=== PATIENT | female | born 1935 | race Caucasian/White ===

== ENCOUNTER 2023-07-27 19:53 | Inpatient (IN) ==
--- NOTE | 2023-07-27 20:35 | XRay Report ---
SINGLE VIEW CHEST CLINICAL HISTORY: Flulike symptoms. FINDINGS: A PA chest radiograph is obtained. No prior studies are available for comparison at the [facility] e of dictation. The cardiomediastinal silhouette is top normal for projection and noting atherosclero tic calcification of the thoracic aorta. Nonspecific interstitial thickening is likely chronic. There is a 3.2 cm lobular density projecting over the right upper lobe. Mild patchy opacities are also see n projecting over the left midlung. No large pleural effusion or pneumothorax is seen. The skeletal s tructures are osteopenic. The bony thorax is grossly intact. Degenerative change and scoliosis is not ed in the spine. IMPRESSION: 1. There is a 3.2 cm lobular/nodular opacity projecting over the right upper lung as well as mild pat flores opacities in the left midlung. Although these findings could be on an infectious/ inflammatory ba sis, a chest CT is recommended for further assessment and to exclude underlying pulmonary neoplasm. 2. No large pleural effusion is identified. ACT 112: Negative or not required by law. Electronically signed by: Zach aLrios M.D. 07/27/2023 8:34 PM
[2023-07-27 20:57] LABS: Adenovirus PCR Not Detected (NotDetected); Bordetella parapertussis PCR Not Detected (NotDetected); Bordetella pertussis PCR Not Detected (NotDetected); Chlamydia pneumoniae PCR Not Detected (NotDetected); Coronavirus 229E PCR Not Detected (NotDetected); Coronavirus CoV-2 (COVID19)PCR Not Detected (NotDetected); Coronavirus HKU1 PCR Not Detected (NotDetected); Coronavirus NL63 PCR Not Detected (NotDetected); Coronavirus OC43PCR Not Detected (NotDetected); Human Metapneumovirus PCR Not Detected (NotDetected); Influenza A PCR Not Detected (NotDetected); Influenza B PCR Not Detected (NotDetected); Mycoplasma pneumoniae PCR Not Detected (NotDetected); Parainfluenza Virus 1 PCR Not Detected (NotDetected); Parainfluenza Virus 2 PCR Not Detected (NotDetected); Parainfluenza Virus 3 PCR Not Detected (NotDetected); Parainfluenza Virus 4 PCR Not Detected (NotDetected); Respiratory Syncytial VirusPCR Not Detected (NotDetected); Rhinovirus/Enterovirus PCR Not Detected (NotDetected)
[2023-07-27] MEDS ORDERED: cefTRIAXone SODIUM 2,000 MG/50 ML BAG IV STA (20:57)
--- NOTE | 2023-07-27 21:02 | Emergency Department Note ---
Impression & Plan Pneumonia, Hypokalemia, Elevated troponin I level ED Provider Note NAME: ANN HECTOR AGE: 87 SEX: F : 1935 ARRIVES VIA: Walk-In INFORMANT: Patient, patient's family ED PROVIDER(S): Jae Mckeon DO CHIEF COMPLAINT: Difficulty breathing HPI: The patient is an 87-year-old female who presented to the emergency department for an evaluation of cough and difficulty breathing. The patient states that since Saturday she has had problems with a productive cough. She has a history of pneumonia and thinks she may have pneumonia again. She does complain of some coughing as well as swelling on her legs. She denies having any hemoptysis. She has not been seen by her family doctor for the symptoms. ROS: See above HPI for pertinent positives & negatives. A total of 10 systems reviewed and were otherwise negative. PAST MEDICAL HISTORY: See Below PAST SURGICAL HISTORY: See Below FAMILY HISTORY: See Below SOCIAL HISTORY: See Below HOME MEDICATIONS: See Below ALLERGIES: See Below VITALS: See Below PHYSICAL EXAMINATION: GENERAL: Patient is awake alert in no acute distress patient is resting comfortably and showing no signs of anxiety EYES: The conjunctivae are clear. The pupils are round and reactive. EARS, NOSE, MOUTH AND THROAT: The nose is without any evidence of any deformity. NECK: The neck is nontender and supple. RESPIRATORY: Diminished breath sounds are noted in the right upper lung field. There is mild conversational dyspnea. CARDIOVASCULAR: Regular rate and rhythm noted there no murmurs rubs or gallops normal S1 normal S2. GASTROINTESTINAL: The abdomen is soft. Abdomen is nontender. MUSCULOSKELETAL/EXTREMITIES: There is no evidence of gross deformity full range of motion is noted in the hips and shoulders. SKIN: There is no obvious evidence of any rash. Trace pedal edema was noted bilaterally. NEUROLOGIC: Patient is awake alert and oriented x3 MEDICAL DECISION MAKING: The patient is an 87-year-old female who presented to the emergency department for an evaluation of productive cough. The patient has had problems with difficulty breathing and productive cough over the course the last week. The patient had abnormal lung sounds. Chest x-ray appears to be consistent with pneumonia. The patient's white blood cell count was elevated. She was also treated with IV fluids and IV antibiotics. She was also treated with potassium replacement. She did not appear to be septic. With exertion she did have a drop in her oxygen saturation but at rest her oxygen saturation was acceptable. Given the patient's age and comorbidities as well as her findings on her emergency department work-up I do feel she would be a better candidate for inpatient management. For this reason I will discuss her case with the on-call [facility] hospitalist. Triage Nursing notes reviewed. Prior medical records reviewed Vital Signs: reviewed and remarkable for no significant abnormalities Differential diagnosis: Reactive airway disease, pneumonia, pneumothorax, COPD, CHF, infections, cardiac ischemia, pulmonary embolism, musculoskeletal, gastrointestinal, as well as other pathologies. ER treatment provided: See below Diagnostics interpreted by me: ECG: EKG was obtained in the emergency department. My interpretation is normal sinus rhythm at [address] segment depressions were noted. There is no ectopy. No previous tracing was available Cardiac Monitoring: An order was placed for continuous cardiac monitoring. The monitor shows a rate of 86 bpm with sinus rhythm. Laboratory studies: As stated above and show below. Imaging studies: See below. Radiographic imaging was reviewed by myself Consultation(s): I discussed this case with Dr. Silvestre who is on-call for the [facility] hospitalist group. Past Med/Surg History Social History Smoking Status: Never smoker Preferred Language: Indonesian Feels Safe at Home: Yes Allergies Allergies Allergy/AdvReac Type Severity Reaction Status Date / Time ampicillin Allergy Unknown HIVES Verified 02/01/16 11:44 Sulfa (Sulfonamide Allergy Unknown HIVES Verified 02/01/16 11:44 Antibiotics) Home Meds Home Medications Medication Instructions Recorded Confirmed ACETAMINOPHEN (TYLENOL ARTHRITIS 1 tab PO BID ##0 12/23/15 PAIN) ASPIRIN (ASPIRIN EC) 325 mg PO HS ##0 12/23/15 CALCIUM W/ VITAMINS D & K (VIACTIV) 1 tab PO BID ##0 12/23/15 CHOLECALCIFEROL (Vitamin D) 1,000 inter.unit PO QAM #0 tabs 12/23/15 Fish Oil (Ventura-3) 1 cap PO QAM #0 caps 12/23/15 Senna/Docusate Sod (Senokot S) 2 tab PO HS #0 tabs 12/23/15 Prednisolone Acetate 1% Oph (Pred 1 drp OPL DIRECTED ##0 01/04/16 Forte 1% Oph) atorvastatin 40 mg tablet 40 mg PO DAILY 07/27/23 07/27/23 Results & Data (ED) Vital Signs Vital Signs - 24 hr 07/27/23 20:00 07/27/23 20:57 07/27/23 21:00 Temperature 36.7 C Temperature Source Temporal Artery Scan Pulse Rate 92 H Pulse Rate [Bilateral] 83 Pulse Rhythm Regular Pulse Strength Normal Respiratory Rate 20 18 Respiratory Effort / Characteristics Non-Labored Spontaneous Respiratory Depth Normal Respiratory Pattern Regular Blood Pressure 156/80 H Blood Pressure [Right Arm] 127/104 H Blood Pressure Mean 105 Blood Pressure Mean [Right Arm] 111 Blood Pressure Position Sitting Pulse Oximetry 96 98 95 Oxygen Delivery Method Room Air Room Air Room Air Sepsis Recent Fever Within 48 Hours No Sepsis New/Unexplained Change in Mental Status N/A Sepsis Action Taken by Nursing No Action Required 07/27/23 21:22 07/27/23 22:30 Temperature Temperature Source Pulse Rate 79 Pulse Rate [Bilateral] 86 Pulse Rhythm Pulse Strength Respiratory Rate 18 Respiratory Effort / Characteristics Respiratory Depth Respiratory Pattern Blood Pressure Blood Pressure [Right Arm] 139/89 Blood Pressure Mean Blood Pressure Mean [Right Arm] 105 Blood Pressure Position Pulse Oximetry 93 Oxygen Delivery Method Room Air Sepsis Recent Fever Within 48 Hours Sepsis New/Unexplained Change in Mental Status Sepsis Action Taken by [facility] Medications Current Medication List: was personally reviewed by me Laboratory Data Attestation: I reviewed the patient's lab results. 07/27/23 20:43 07/27/23 20:43 Lab Results 07/27/23 07/27/23 07/27/23 Range/Units 20:05 20:43 22:15 WBC 18.38 H (4.8-10.8) K/ul RBC 3.70 L (4.20-5.40) M/uL Hgb 12.9 (12.0-16.0) g/dl Hct 37.7 (37.0-47.0) % MCV 101.9 H (80.0-100.0) fL MCH 34.9 H (25.0-34.0) pg MCHC 34.2 (32.0-36.0) g/dL RDW Std Deviation 47.8 H (36.4-46.3) fL RDW Coeff of Mark 12.7 (11.5-14.5) % Plt Count 306 (130-400) K/uL MPV 9.6 (9.4-12.4) fL Immature Gran % (Auto) 0.4 % Neut % (Auto) 85.7 % Lymph % (Auto) 7.1 % [place] % (Auto) 6.3 % Eos % (Auto) 0.1 % Baso % (Auto) 0.4 % Neut # (Auto) 15.76 H (1.40-6.50) K/uL Lymph # (Auto) 1.31 (1.20-3.40) K/uL [place] # (Auto) 1.15 H (0.11-0.59) K/uL Eos # (Auto) 0.01 (0.00-0.50) K/uL Baso # (Auto) 0.07 (0.00-0.20) K/uL Immature Gran # (Auto) 0.08 (0.01-0.20) K/uL Sodium 140 (136-145) mmol/L Potassium 2.8 L (3.5-5.1) mmol/L Chloride 104 (98-107) mmol/L Carbon Dioxide 25 (21-32) mmol/L Anion Gap 11 (3-11) BUN 13 (6-23) mg/dl Creatinine 0.67 (0.6-1.2) mg/dl Est Cr Clr Drug Dosing Not Reportable Est GFR ( Amer) 91.0 ml/min Est GFR (Non-Af Amer) 78.5 ml/min BUN/Creatinine Ratio 19.4 (10-20) Glucose 122 H (70-99(Fasting)) mg/dl Calcium 10.0 (8.6-10.3) mg/dl Total Bilirubin 0.7 (0.2-1.0) mg/dl AST 30 (13-39) U/L ALT 19 (7-52) U/L Alkaline Phosphatase 72 (34-104) U/L Troponin I High Sens 19.9 H (0-14) pg/ml C-Reactive Protein 16.55 H (0-0.5) mg/dl Total Protein 8.1 (6.0-8.3) gm/dl Albumin 4.2 (3.4-5.0) gm/dl Globulin 3.9 (2.5-4.0) gm/dl Albumin/Globulin Ratio 1.1 (0.9-2) Procalcitonin 0.19 (0-0.5) ng/ml Urine Color Yellow Urine Appearance Clear (Clear) Urine pH 7.0 (4.5-7.5) Ur Specific [place] 1.024 (1.000-1.030) Urine Protein 3+ H (Negative) Urine Glucose (UA) Negative (Negative) Urine Ketones 2+ H (Negative) Urine Blood Trace H (Negative) Urine Nitrite Negative (Negative) Urine Bilirubin Negative (Negative) Urine Urobilinogen Negative (Negative) Ur Leukocyte Esterase Trace H (Negative) Urine WBC (Auto) 1-5 (0-5) /hpf Urine RBC (Auto) 10-30 H (0-4) /hpf U Hyaline Cast (Auto) 1-5 (0-5) /lpf U Epithel Cells (Auto) >30 H (0-5) /lpf Urine Bacteria (Auto) Negative (Negative) Adenovirus (PCR) Not Detected (NotDetected) B. pertussis DNA (PCR) Not Detected (NotDetected) B.parapertussis DNA PCR Not Detected (NotDetected) C. pneumoniae DNA (PCR) Not Detected (NotDetected) Coronavirus OC43 (PCR) Not Detected (NotDetected) Coronavirus HKU1 (PCR) Not Detected (NotDetected) Coronavirus 229E (PCR) Not Detected (NotDetected) SARS-CoV-2 (PCR) Not Detected (NotDetected) Coronavirus NL63 (PCR) Not Detected (NotDetected) Human Metapneumovir PCR Not Detected (NotDetected) Influenza Type A (PCR) Not Detected (NotDetected) Influenza Type B (PCR) Not Detected (NotDetected) M. pneumoniae (PCR) Not Detected (NotDetected) Parainfluenza 1 (PCR) Not Detected (NotDetected) Parainfluenza 2 (PCR) Not Detected (NotDetected) Parainfluenza 3 (PCR) Not Detected (NotDetected) Parainfluenza 4 (PCR) Not Detected (NotDetected) RSV (PCR) Not Detected (NotDetected) Entero/Rhino (PCR) Not Detected (NotDetected) Administered Medications Discontinued Medications Ceftriaxone Sodium (Rocephin) 2,000 mg in 50 mls @ 100 mls/hr IV NOW STA Stop: 07/27/23 21:26 Last Infusion: 07/27/23 22:59 Dose: Infused Documented By: Admin: 07/27/23 22:37 Dose: 100 mls/hr Documented By: HOSSEIN Potassium Chloride (K Nathaniel / Wtr) 10 meq in 100 mls @ 100 mls/hr IV ONE ONE Stop: 07/27/23 22:45 Last Infusion: 07/27/23 23:31 Dose: Infused Documented By: Admin: 07/27/23 22:37 Dose: 100 mls/hr Documented By: TBS Sodium Chloride (Nss) 1,000 mls @ 999 mls/hr IV .Q1H1M ONE Stop: 07/27/23 22:46 Last Infusion: 07/27/23 23:33 Dose: Infused Documented By: Admin: 07/27/23 22:37 Dose: 999 mls/hr Documented By: HOSSEIN Ioversol (Optiray 320 125ml) 115 ml IV ONCE ONE Stop: 07/27/23 22:13 Last Admin: 07/27/23 22:12 Dose: 115 ml Documented By: EDK Potassium Chloride (Potassium Chloride 10 Meq Tabcr) 20 meq PO NOW STA Stop: 07/27/23 21:47 Last Admin: 07/27/23 22:37 Dose: 20 meq Documented By: HOSSEIN Imaging Data Attestation: I personally reviewed and interpreted this imaging study as follows: My Impression: 1 view chest x-ray was obtained in the emergency department. My interpretation is bilateral infiltrates, no free air, final report below. CT angiography of the chest was obtained in the emergency department. My interpretation is bilateral infiltrates noted, no definite pulmonary embolism, final report pending. Radiologist's Impression: Chest X-Ray 07/27/23 20:04 SINGLE VIEW CHEST CLINICAL HISTORY: Flulike symptoms. FINDINGS: A PA chest radiograph is obtained. No prior studies are available for comparison at the time of dictation. The cardiomediastinal silhouette is top normal for projection and noting atherosclerotic calcification of the thoracic aorta. Nonspecific interstitial thickening is likely chronic. There is a 3.2 cm lobular density projecting over the right upper lobe. Mild patchy opacities are also seen projecting over the left midlung. No large pleural effusion or pneumothorax is seen. The skeletal structures are osteopenic. The bony thorax is grossly intact. Degenerative change and scoliosis is noted in the spine. IMPRESSION: 1. There is a 3.2 cm lobular/nodular opacity projecting over the right upper lung as well as mild patchy opacities in the left midlung. Although these findings could be on an infectious/ inflammatory basis, a chest CT is recommended for further assessment and to exclude underlying pulmonary neoplasm. 2. No large pleural effusion is identified. ACT 112: Negative or not required by law. Electronically signed by: Zach Larios M.D. 07/27/2023 8:34 PM Chest CTA 07/27/23 20:57 Exam(s): CTA CHEST IV Amt: OPTIRAY [id number] 115ML EXAM: CT Angiography Chest With Intravenous Contrast CLINICAL HISTORY: Reason for exam: PE. TECHNIQUE: Axial computed tomographic angiography images of the chest with intravenous contrast. CTDI is 14.48 mGy and DLP is 210.42 mGy-cm. Automated exposure control was utilized for the study. A dose lowering technique was utilized adhering to the principles of ALARA. MIP reconstructed images were created and reviewed. COMPARISON: No relevant prior studies available. FINDINGS: Pulmonary arteries: Unremarkable. No CT evidence of pulmonary embolism. Aorta: No acute findings. No thoracic aortic aneurysm. Lungs: Patchy peripheral consolidations within the posterior right upper lobe and the lingula concerning for infectious etiologies. Also involves the right middle lobe to a lesser extent. No consolidation. Pleural space: Unremarkable. No significant effusion. No pneumothorax. Heart: Unremarkable. No cardiomegaly. No significant pericardial effusion. No evidence of RV dysfunction. Bones/joints: Moderate T7 compression fracture which is favored to be remote. No dislocation. Soft tissues: Unremarkable. Lymph nodes: Unremarkable. No enlarged lymph nodes. IMPRESSION: 1. No CT evidence of pulmonary embolism. 2. Patchy peripheral consolidations within the posterior right upper lobe and the lingula concerning for infectious etiologies. Also involves the right middle lobe to a lesser extent. Electronically signed by: Robert Banuelos M.D. 07/27/23 23:54 PM Discharge Plan Visit Data Chief Complaint: Respiratory Problems Stated Complaint: DIFFICULTY BREATHING, CHEST DISCOMFORT, WEAKNESS ED Provider: Jae Mckeon Discharge Problem: Pneumonia, Hypokalemia, Elevated troponin I level Patient Disposition: Being Evaluated by Hospitalist Forms Stand Alone Forms: [facility] Prescriptions Prescriptions: No Action ACETAMINOPHEN (TYLENOL ARTHRITIS PAIN) 650 MG tablet 1 tab PO BID Qty: 0 ASPIRIN (ASPIRIN EC) 325 MG tablet 325 mg PO HS Qty: 0 CALCIUM W/ VITAMINS D & K (VIACTIV) 1 CHW CHW 1 tab PO BID Qty: 0 CHOLECALCIFEROL (Vitamin D) 1,000 INTER.UNIT tablet 1,000 inter.unit PO QAM Qty: 0 Fish Oil (Ventura-3) 1 EA capsule 1 cap PO QAM Qty: 0 Senna/Docusate Sod (Senokot S) 1 TAB tablet 2 tab PO HS Qty: 0 Prednisolone Acetate 1% Oph (Pred Forte 1% Oph) suspension 1 drp OPL DIRECTED Qty: 0 atorvastatin 40 mg tablet 40 mg PO DAILY Referrals Referrals: Andrea Winston DO [Physician] - Discharge Problem: Pneumonia Qualifiers: Pneumonia type: due to unspecified organism Laterality: bilateral Lung location: unspecified part of lung Qualified Code(s): J18.9 - Pneumonia, unspecified organism
[2023-07-27 21:26] LABS: Alanine Aminotransferase 19 U/L (7-52); Albumin Globulin Ratio 1.1 (0.9-2); Albumin Level 4.2 gm/dl (3.4-5.0); Alkaline Phosphatase 72 U/L (34-104); Anion Gap 11 (3-11); Aspartate Aminotransferase 30 U/L (13-39); BUN Creatinine Ratio 19.4 (10-20); Bilirubin,Total 0.7 mg/dl (0.2-1.0); Blood Urea Nitrogen 13 mg/dl (6-23); C Reactive Protein 16.55 mg/dl (0-0.5); Carbon Dioxide 25 mmol/L (21-32); Chloride 104 mmol/L (98-107); Est GFR (Non-African American) 78.5 ml/min; Globulin 3.9 gm/dl (2.5-4.0); Glucose 122 mg/dl (70-99(Fasting)); Potassium 2.8 mmol/L (3.5-5.1); Sodium 140 mmol/L (136-145); Total Protein 8.1 gm/dl (6.0-8.3)
[2023-07-27 21:32] LABS: Troponin I High Sensitivity 19.9 pg/ml (0-14)
[2023-07-27 21:39] LABS: Basophils # (auto) 0.07 K/uL (0.00-0.20); Basophils % (auto) 0.4 %; Eosinophils # (auto) 0.01 K/uL (0.00-0.50); Eosinophils % (auto) 0.1 %; Hematocrit (blood only) 37.7 % (37.0-47.0); Hemoglobin 12.9 g/dl (12.0-16.0); Immature Granulocytes # (auto) 0.08 K/uL (0.01-0.20); Immature Granulocytes % (auto) 0.4 %; Lymphocytes # (auto) 1.31 K/uL (1.20-3.40); Lymphocytes % (auto) 7.1 %; Mean Corpuscular Hemoglobin 34.9 pg (25.0-34.0); Mean Corpuscular Hgb Conc 34.2 g/dL (32.0-36.0); Mean Corpuscular Volume 101.9 fL (80.0-100.0); Mean Platelet Volume 9.6 fL (9.4-12.4); Monocytes # (auto) 1.15 K/uL (0.11-0.59); Monocytes % (auto) 6.3 %; Neutrophils # (auto) 15.76 K/uL (1.40-6.50); Neutrophils % (auto) 85.7 %; Platelet Count 306 K/uL (130-400); RDW Coefficient of Variation 12.7 % (11.5-14.5); RDW Standard Deviation 47.8 fL (36.4-46.3); White Blood Count 18.38 K/ul (4.8-10.8)
[2023-07-27] MEDS ORDERED: POTASSIUM CHLORIDE 10 MEQ TABCR PO STA (21:46)
[2023-07-27] MEDS ORDERED: SODIUM CHLORIDE 0.9% 1,000 ML IV ONE (21:46)
[2023-07-27] MEDS ORDERED: POTASSIUM CHLORIDE / WTR 10 MEQ/100 ML PLCT IV ONE (21:46)
[2023-07-27] MEDS ORDERED: OPTIRAY 320 125ml IV ONE (22:12)
[2023-07-27 22:41] LABS: Appearance Urine Clear (Clear); Bacteria Urine Automated Negative (Negative); Bilirubin Urine Negative (Negative); Blood Urine Trace (Negative); Color Urine Yellow; Epithelial Cell Urine Auto >30 /lpf (0-5); Glucose Urine UA Negative (Negative); Ketones Urine 2+ (Negative); Leukocyte Esterase Urine Trace (Negative); Nitrite Urine Negative (Negative); Protein Urine 3+ (Negative); Specific Gravity Urine 1.024 (1.000-1.030); Urobilinogen Urine Negative (Negative)
[2023-07-27] MEDS ORDERED: POTASSIUM CHLORIDE CRTAB 20 MEQ TABCR PO STA (23:47)
--- NOTE | 2023-07-27 23:55 | CT Scan Report ---
Exam(s): CTA CHEST IV Amt: OPTIRAY [id number] 115ML EXAM: CT Angiography Chest With Intravenous Contrast CLINICAL HISTORY: Reason for exam: PE. TECHNIQUE: Axial computed tomographic angiography images of the chest with intravenous contrast. CTDI is 14.48 mGy and DLP is 210.42 mGy-cm. Automated exposure control was utilized for the study. A dose lowering technique was utilized adhering to the principles of ALARA. MIP reconstructed images were created and reviewed. COMPARISON: No relevant prior studies available. FINDINGS: Pulmonary arteries: Unremarkable. No CT evidence of pulmonary embolism. Aorta: No acute findings. No thoracic aortic aneurysm. Lungs: Patchy peripheral consolidations within the posterior right upper lobe and the lingula concerning for infectious etiologies. Also involves the right middle lobe to a lesser extent. No consolidation. Pleural space: Unremarkable. No significant effusion. No pneumothorax. Heart: Unremarkable. No cardiomegaly. No significant pericardial effusion. No evidence of RV dysfunction. Bones/joints: Moderate T7 compression fracture which is favored to be remote. No dislocation. Soft tissues: Unremarkable. Lymph nodes: Unremarkable. No enlarged lymph nodes. IMPRESSION: 1. No CT evidence of pulmonary embolism. 2. Patchy peripheral consolidations within the posterior right upper lobe and the lingula concerning for infectious etiologies. Also involves the right middle lobe to a lesser extent. Electronically signed by: Robert Banuelos M.D. 07/27/23 23:54 PM
[2023-07-28 00:12] LABS: Magnesium 2.1 mg/dl (1.7-2.4)
[2023-07-28 00:14] LABS: Partial Thromboplastin Ratio 1.1; Partial Thromboplastin Time 31.2 Seconds (21.0-31.0)
--- NOTE | 2023-07-28 00:23 | History & Physical Report ---
Date of Service July 28, 2023 Assessment & Plan (1) Sepsis: Plan: Possible aspiration pneumonia Troponin elevation secondary to above hx TIA on aspirin Rx hyperlipidemia on statin Rx History PUD, not on maintenance antacid medications Hyperglycemia rule out DM Medical telemetry CS, Clindamycin Aspiration precautions, MANUAL TESTER eval Follow troponin, TTE if w progression Check hemoglobin A1c DVT prophylaxis. Lovenox subcu Full code Patient son requesting updates providers. Ms. Mauro Hill, contact #[phone]. Text document was generated using [employer] voice recognition software. It may contain grammatical or spelling errors. Kindly contact undersigned for clarification of any documentation item in question. History of Present Illness Chief Complaint: Shortness of breath Primary Care Provider: Daniela Castillo, History obtained from patient, family, and records. Medical history significant for TIA, hyperlipidemia, PUD as per records. 5 days ago, patient noted junky cough symptoms. Not sure about sick contacts. Has received COVID-19 vaccination. Admits to choking sometimes with meals/water intake. No chest pain. Denies fluid retention. Some weight loss following recent demise of daughter with pancreatic cancer. Patient given Ceftriaxone at the ER. Medical History as above Surgical History : PAULA, partial colectomy for diverticulitis Family History : Pancreatic cancer Personal/Social history : Non-smoker, no EtOH intake, retired bank sales and service manager Allergies Allergy/AdvReac Type Severity Reaction Status Date / Time ampicillin Allergy Unknown HIVES Verified 07/28/23 00:08 Sulfa (Sulfonamide Allergy Unknown HIVES Verified 07/28/23 00:08 Antibiotics) Home Medications Medication Instructions Recorded Confirmed Type atorvastatin 40 mg tablet 20 mg PO 2XWK 07/27/23 07/28/23 History acetaminophen 650 mg 650 mg PO HS 07/28/23 07/28/23 History tablet,extended release aspirin 81 mg tablet,delayed 81 mg PO DAILY 07/28/23 07/28/23 History release calcium-vitamin D3-vitamin K 500 1 tab PO QAM 07/28/23 07/28/23 History mg-200 unit-40 mcg chewable tablet cholecalciferol (vitamin D3) 25 25 mcg PO QAM 07/28/23 07/28/23 History mcg (1,000 unit) tablet (Vitamin D3) sennosides 8.6 mg-docusate sodium 2 tab-cap PO HS 07/28/23 07/28/23 History 50 mg tablet (Senna with Docusate Sodium) Past Med/Surg History Social History Smoking Status: Never smoker Preferred Language: Mozambican Feels Safe at Home: Yes Review of Systems Review of Systems: As per HPI, all other systems reviewed and negative Physical Exam Physical Exam: GENERAL: Slightly uncomfortable, frail, minimal respiratory distress SKIN: Normal color, warm HEENT: [place] palpebral conjunctivae, no ptosis, dry buccal mucosa NECK : Supple, no tenderness CHEST : Decreased breath sounds, scattered expiratory wheezes, no tenderness HEART : RRR, no obvious murmurs ABDOMEN: no distention, nontender EXTREMITIES : No LE swelling/tenderness, no other conspicuous deformities noted NEUROLOGIC : Coherent, no facial asymmetry, no other gross focality Results & Data Results & Data Vital Signs (Past 12 Hours) Vital Signs Temp Pulse Pulse Resp BP BP Pulse Ox 07/28/23 00:00 70 20 157/88 H 95 07/27/23 22:30 86 18 139/89 93 07/27/23 21:22 79 07/27/23 21:00 83 18 127/104 H 95 07/27/23 20:57 98 07/27/23 20:00 36.7 C 92 H 20 156/80 H 96 O2 Del Method 07/28/23 00:00 Room Air 07/27/23 22:30 Room Air 07/27/23 21:22 07/27/23 21:00 Room Air 07/27/23 20:57 Room Air 07/27/23 20:00 Room Air Laboratory Results Laboratory Results WBC 18.38 K/ul (4.8-10.8) H 07/27/23 20:43 RBC 3.70 M/uL (4.20-5.40) L 07/27/23 20:43 Hgb 12.9 g/dl (12.0-16.0) 07/27/23 20:43 Hct 37.7 % (37.0-47.0) 07/27/23 20:43 MCV 101.9 fL (80.0-100.0) H 07/27/23 20:43 MCH 34.9 pg (25.0-34.0) H 07/27/23 20:43 MCHC 34.2 g/dL (32.0-36.0) 07/27/23 20:43 RDW Std Deviation 47.8 fL (36.4-46.3) H 07/27/23 20:43 RDW Coeff of Mark 12.7 % (11.5-14.5) 07/27/23 20:43 Plt Count 306 K/uL (130-400) 07/27/23 20:43 MPV 9.6 fL (9.4-12.4) 07/27/23 20:43 Immature Gran % (Auto) 0.4 % 07/27/23 20:43 Neut % (Auto) 85.7 % 07/27/23 20:43 Lymph % (Auto) 7.1 % 07/27/23 20:43 Jasper % (Auto) 6.3 % 07/27/23 20:43 Eos % (Auto) 0.1 % 07/27/23 20:43 Baso % (Auto) 0.4 % 07/27/23 20:43 Neut # (Auto) 15.76 K/uL (1.40-6.50) H 07/27/23 20:43 Lymph # (Auto) 1.31 K/uL (1.20-3.40) 07/27/23 20:43 Jasper # (Auto) 1.15 K/uL (0.11-0.59) H 07/27/23 20:43 Eos # (Auto) 0.01 K/uL (0.00-0.50) 07/27/23 20:43 Baso # (Auto) 0.07 K/uL (0.00-0.20) 07/27/23 20:43 Immature Gran # (Auto) 0.08 K/uL (0.01-0.20) 07/27/23 20:43 APTT 31.2 Seconds (21.0-31.0) H 07/27/23 20:43 PTT Ratio 1.1 07/27/23 20:43 Sodium 140 mmol/L (136-145) 07/27/23 20:43 Potassium 2.8 mmol/L (3.5-5.1) L 07/27/23 20:43 Chloride 104 mmol/L (98-107) 07/27/23 20:43 Carbon Dioxide 25 mmol/L (21-32) 07/27/23 20:43 Anion Gap 11 (3-11) 07/27/23 20:43 BUN 13 mg/dl (6-23) 07/27/23 20:43 Creatinine 0.67 mg/dl (0.6-1.2) 07/27/23 20:43 Est Cr Clr Drug Dosing Not Reportable 07/27/23 20:43 Est GFR ( Amer) 91.0 ml/min 07/27/23 20:43 Est GFR (Non-Af Amer) 78.5 ml/min 07/27/23 20:43 BUN/Creatinine Ratio 19.4 (10-20) 07/27/23 20:43 Glucose 122 mg/dl (70-99(Fasting)) H 07/27/23 20:43 Calcium 10.0 mg/dl (8.6-10.3) 07/27/23 20:43 Magnesium 2.1 mg/dl (1.7-2.4) 07/27/23 20:43 Total Bilirubin 0.7 mg/dl (0.2-1.0) 07/27/23 20:43 AST 30 U/L (13-39) 07/27/23 20:43 ALT 19 U/L (7-52) 07/27/23 20:43 Alkaline Phosphatase 72 U/L (34-104) 07/27/23 20:43 Troponin I High Sens 19.9 pg/ml (0-14) H 07/27/23 20:43 C-Reactive Protein 16.55 mg/dl (0-0.5) H 07/27/23 20:43 Total Protein 8.1 gm/dl (6.0-8.3) 07/27/23 20:43 Albumin 4.2 gm/dl (3.4-5.0) 07/27/23 20:43 Globulin 3.9 gm/dl (2.5-4.0) 07/27/23 20:43 Albumin/Globulin Ratio 1.1 (0.9-2) 07/27/23 20:43 Procalcitonin 0.19 ng/ml (0-0.5) 07/27/23 20:43 Urine Color Yellow 07/27/23 22:15 Urine Appearance Clear (Clear) 07/27/23 22:15 Urine pH 7.0 (4.5-7.5) 07/27/23 22:15 Ur Specific [place] 1.024 (1.000-1.030) 07/27/23 22:15 Urine Protein 3+ (Negative) H 07/27/23 22:15 Urine Glucose (UA) Negative (Negative) 07/27/23 22:15 Urine Ketones 2+ (Negative) H 07/27/23 22:15 Urine Blood Trace (Negative) H 07/27/23 22:15 Urine Nitrite Negative (Negative) 07/27/23 22:15 Urine Bilirubin Negative (Negative) 07/27/23 22:15 Urine Urobilinogen Negative (Negative) 07/27/23 22:15 Ur Leukocyte Esterase Trace (Negative) H 07/27/23 22:15 Urine WBC (Auto) 1-5 /hpf (0-5) 07/27/23 22:15 Urine RBC (Auto) 10-30 /hpf (0-4) H 07/27/23 22:15 U Hyaline Cast (Auto) 1-5 /lpf (0-5) 07/27/23 22:15 U Epithel Cells (Auto) >30 /lpf (0-5) H 07/27/23 22:15 Urine Bacteria (Auto) Negative (Negative) 07/27/23 22:15 Adenovirus (PCR) Not Detected (NotDetected) 07/27/23 20:05 B. pertussis DNA (PCR) Not Detected (NotDetected) 07/27/23 20:05 B.parapertussis DNA PCR Not Detected (NotDetected) 07/27/23 20:05 C. pneumoniae DNA (PCR) Not Detected (NotDetected) 07/27/23 20:05 Coronavirus OC43 (PCR) Not Detected (NotDetected) 07/27/23 20:05 Coronavirus HKU1 (PCR) Not Detected (NotDetected) 07/27/23 20:05 Coronavirus 229E (PCR) Not Detected (NotDetected) 07/27/23 20:05 SARS-CoV-2 (PCR) Not Detected (NotDetected) 07/27/23 20:05 Coronavirus NL63 (PCR) Not Detected (NotDetected) 07/27/23 20:05 Human Metapneumovir PCR Not Detected (NotDetected) 07/27/23 20:05 Influenza Type A (PCR) Not Detected (NotDetected) 07/27/23 20:05 Influenza Type B (PCR) Not Detected (NotDetected) 07/27/23 20:05 M. pneumoniae (PCR) Not Detected (NotDetected) 07/27/23 20:05 Parainfluenza 1 (PCR) Not Detected (NotDetected) 07/27/23 20:05 Parainfluenza 2 (PCR) Not Detected (NotDetected) 07/27/23 20:05 Parainfluenza 3 (PCR) Not Detected (NotDetected) 07/27/23 20:05 Parainfluenza 4 (PCR) Not Detected (NotDetected) 07/27/23 20:05 RSV (PCR) Not Detected (NotDetected) 07/27/23 20:05 Entero/Rhino (PCR) Not Detected (NotDetected) 07/27/23 20:05 Impressions Chest X-Ray 07/27/23 20:04 SINGLE VIEW CHEST CLINICAL HISTORY: Flulike symptoms. FINDINGS: A PA chest radiograph is obtained. No prior studies are available for comparison at the time of dictation. The cardiomediastinal silhouette is top normal for projection and noting atherosclerotic calcification of the thoracic aorta. Nonspecific interstitial thickening is likely chronic. There is a 3.2 cm lobular density projecting over the right upper lobe. Mild patchy opacities are also seen projecting over the left midlung. No large pleural effusion or pneumothorax is seen. The skeletal structures are osteopenic. The bony thorax is grossly intact. Degenerative change and scoliosis is noted in the spine. IMPRESSION: 1. There is a 3.2 cm lobular/nodular opacity projecting over the right upper lung as well as mild patchy opacities in the left midlung. Although these findings could be on an infectious/ inflammatory basis, a chest CT is recommended for further assessment and to exclude underlying pulmonary neoplasm. 2. No large pleural effusion is identified. ACT 112: Negative or not required by law. Electronically signed by: Zach Larios M.D. 07/27/2023 8:34 PM Chest CTA 07/27/23 20:57 Exam(s): CTA CHEST IV Amt: OPTIRAY [id number] 115ML EXAM: CT Angiography Chest With Intravenous Contrast CLINICAL HISTORY: Reason for exam: PE. TECHNIQUE: Axial computed tomographic angiography images of the chest with intravenous contrast. CTDI is 14.48 mGy and DLP is 210.42 mGy-cm. Automated exposure control was utilized for the study. A dose lowering technique was utilized adhering to the principles of ALARA. MIP reconstructed images were created and reviewed. COMPARISON: No relevant prior studies available. FINDINGS: Pulmonary arteries: Unremarkable. No CT evidence of pulmonary embolism. Aorta: No acute findings. No thoracic aortic aneurysm. Lungs: Patchy peripheral consolidations within the posterior right upper lobe and the lingula concerning for infectious etiologies. Also involves the right middle lobe to a lesser extent. No consolidation. Pleural space: Unremarkable. No significant effusion. No pneumothorax. Heart: Unremarkable. No cardiomegaly. No significant pericardial effusion. No evidence of RV dysfunction. Bones/joints: Moderate T7 compression fracture which is favored to be remote. No dislocation. Soft tissues: Unremarkable. Lymph nodes: Unremarkable. No enlarged lymph nodes. IMPRESSION: 1. No CT evidence of pulmonary embolism. 2. Patchy peripheral consolidations within the posterior right upper lobe and the lingula concerning for infectious etiologies. Also involves the right middle lobe to a lesser extent. Electronically signed by: Robert Banuelos M.D. 07/27/23 23:54 PM Diagnostic Findings EKG as per my interpretation : Rate 95, NSR, normal axis, inferior infarct, T wave abnormalities inferior and anterolateral leads
[2023-07-28] MEDS ORDERED: ALBUT/IPRATROP 3MG/0.5MG NEB 3 ML VIAL NEB STA ×2 (00:24→06:42)
[2023-07-28] MEDS ORDERED: CLINDAMYCIN/D5W 600 MG/50 ML BAG IV STA (00:27)
[2023-07-28] MEDS ORDERED: PROMETHAZINE HCL 6.25 MG in SODIUM CHLORIDE 0.9% 50 ML IV PRN (00:30)
[2023-07-28] MEDS ORDERED: POTASSIUM CHLORIDE 20 MEQ in LACTATED RINGER'S 1,000 ML IV STA (00:35)
[2023-07-28 01:09] LABS: Basophils # (auto) 0.06 K/uL (0.00-0.20); Basophils % (auto) 0.4 %; Eosinophils # (auto) 0.01 K/uL (0.00-0.50); Eosinophils % (auto) 0.1 %; Hematocrit (blood only) 32.1 % (37.0-47.0); Immature Granulocytes % (auto) 0.6 %; Lymphocytes # (auto) 1.24 K/uL (1.20-3.40); Lymphocytes % (auto) 7.6 %; Mean Corpuscular Hemoglobin 35.1 pg (25.0-34.0); Mean Corpuscular Hgb Conc 34.3 g/dL (32.0-36.0); Mean Corpuscular Volume 102.6 fL (80.0-100.0); Mean Platelet Volume 9.3 fL (9.4-12.4); Monocytes # (auto) 1.06 K/uL (0.11-0.59); Monocytes % (auto) 6.5 %; Neutrophils # (auto) 13.86 K/uL (1.40-6.50); Neutrophils % (auto) 84.8 %; Platelet Count 248 K/uL (130-400); RDW Coefficient of Variation 12.8 % (11.5-14.5); RDW Standard Deviation 47.8 fL (36.4-46.3); Red Blood Count 3.13 M/uL (4.20-5.40); White Blood Count 16.33 K/ul (4.8-10.8)
[2023-07-28 01:18] LABS: BUN Creatinine Ratio 15.2 (10-20); Calcium 8.4 mg/dl (8.6-10.3); Creatinine Clr Calc Pharmacy 40.2 ml/min; Est GFR (African American) 91.4 ml/min; Est GFR (Non-African American) 78.9 ml/min; Potassium 3.1 mmol/L (3.5-5.1)
[2023-07-28 07:57] LABS: Estimated Average Glucose 114 mg/dl; Hemoglobin A1C 5.6 % (4.5-5.6)
[2023-07-28] MEDS: CLINDAMYCIN/D5W 600 MG/50 ML BAG IV SCH ×2 (08:11→16:13)
[2023-07-28] MEDS: ASPIRIN 81 MG ECTAB PO SCH (08:14)
[2023-07-28] MEDS: ENOXAPARIN INJ 30 MG/0.3 ML SYR SQ SCH (08:15)
--- OUTSIDE RECORDS SUMMARY | 2023-07-28 09:34 | External Medical Summary | Summary of Care ---
Author Name Unknown Organization [facility] Address [address] [place] [address] Phone [phone] Care Team Providers Care Director Auto Name Role Phone Daniela Castillo Primary Care Provider Reason for Visit * Reason Comments Outpatient Testing Encounter Details Date Type Department Care Team Description 05/30/2023 Laboratory Laboratory, [facility] [address] [place] [address] [facility] [address] [place] [address] Hyperlipidemia with target LDL less than 130 Allergies Active Allergy Reactions Severity Noted Date Comments Ampicillin 08/06/2006 Hives Sulfa Antibiotics 08/06/2006 Dizzy, hives, SOB documented as of this encounter (statuses as of 05/30/2023) Medications Medication Sig Dispensed Refills Start Date End Date Status VIACTIV 500-100-40 PO CHEWIndications:Other osteoporosis 1 chew twice a day 0 11/07/2006 Active VITAMIN D 1000 UNIT PO CAPS 1 capsule daily 0 05/27/2009 Active Acetaminophen ER 650 MG Oral Tablet Extended Release Take 1 Tablet by mouth in the morning. 0 02/25/2018 Active aspirin enteric coated 81 MG TBECIndications:Hx-TI A (transient ischemic attack) Take 1 Tablet by mouth in the morning. 100 Tab 3 04/27/2019 Active Restasis 0.05 % Ophthalmic Emulsion (cycloSPORINE) 1 Drop in the morning and 1 Drop before bedtime. affected eye(s). 0 05/05/2021 Active Ventolin HFA 108 (90 Base) MCG/ACT Inhalation Aerosol SolutionIndications:P neumonia due to organism inhale 2 puffs by mouth every 6 hours if needed for wheezing 18 g 1 06/29/2021 Active Atorvastatin Calcium 40 MG Oral Tablet (Lipitor)Indications: Hyperlipidemia with target LDL less than 130 TAKE 1/2 TAB BY MOUTH MONDAYS AND THURSDAYS. 24 Tablet 3 10/20/2022 Active documented as of this encounter (statuses as of 05/30/2023) Active Problems Problem Noted Date Age-related osteoporosis without current pathological fracture 07/06/2020 Hyperlipidemia with target LDL less than 130 03/06/2016 Overview: ASCVD percentage risk: 19.2%- My G sent documented as of this encounter (statuses as of 05/30/2023) Resolved Problems Problem Noted Date Resolved Date Osteoporosis 09/06/2015 07/06/2020 Overview: Stable, but not improving after over 18 years of oral medications, seen in [facility] 2012 Hyperlipidemia with target LDL less than 100 03/06/2016 Overview: ICD-10 update of inactive term Vitamin D deficiency 05/27/2009 02/26/2018 TIA (transient ischemic attack) 02/24/2009 02/24/2013 Overview: Modified per CVA protocol #8 Osteoarthrosis 08/06/2006 02/09/2016 Gastrointestinal hemorrhage 03/09/200008/10 Duodenal ulcer, unspecified as acute or chronic, without hemorrhage, perforation, or obstruction 03/09/2000 09/06/2015 Dyslipidemia, goal to be determined 12/22/2013 Other osteoporosis without current pathological fracture 09/06/2015 Overview: ICD-10 update of inactive term Other specified transient cerebral ischemias 02/24/2009 Overview: Modified per CVA protocol #8 documented as of this encounter (statuses as of 05/30/2023) Immunizations Name Administration Dates Next Due COVID-19 mRNA, LNP-s, No Pre serve, 2-Dose Series (Pfizer) 11/26/2020,11/05/2020 Pneumococcal Conjugate Vacc, 13 Valent (Prevnar) 03/06/2016 Pneumococcal Polysaccharide PPV23 (Pneumovax) 07/10/2002 Season Influenza, Quad, PF, Adjuvanted, 65+ Yrs, IM (FLUAD) 07/14/2020 Seasonal Influenza, PF, 6 mo ns & Above, IM , (Flulaval) 06/12/2018 Seasonal Influenza, Quadriva lent Hd (Fluzone Hd) 05/30/2023,06/19/2021 Seasonal Influenza, Quadriva lent, No Preserve, IM 06/26/2017,08/28/2016,06/29/2015 Seasonal Influenza, Split, I IV3, With Preserve, Inj 06/29/2014,07/14/2013,06/25/2012,06/07,06/01/2010,05/26/2009,08/19/2008 ,08/14/2007,08/06/2006 Seasonal Influenza, Trivalen t, Adjuvanted, 65+ yrs 08/04/2019 Varicella Zoster Vaccine (Adult) 016,09/06/2015(Deferred: Patient Refused) documented as of this encounter Social History Tobacco Use Types Packs/Day Years Used Date Smoking Tobacco: Never Smokeless Tobacco: Never Alcohol Use Standard Drinks/Week Comments No 0 (1 standard drink = 0.6 oz pur e alcohol) Food Insecurity Answer Date Recorded Within the past 12 months, y ou worried that your food would run out before you got money to buy more. Never true 10/29/2019 Within the past 12 months, t he food you bought just didn't last and you didn't have money to get more. Never true 10/29/2019 Sex Assigned at Date Recorded Not on file Job Start Date Occupation Industry Not on file Not on file Not on file documented as of this encounter Plan of Treatment Upcoming Encounters Date Type Specialty Care Team Description 08/13/2023 Imaging Radiology 11/29/2023 Office Visit Family Medicine Daniela Castillo, DO [address], [place] [id number] Pending Results Name Type Priority Associated Diagnoses Date /Time LIPID PANEL WITH DIRECT LDL IF TG IS HIGH Lab Routine Hyperlipidemia with target LDL less than 130 05/30/2023 9:54 AM EDT BASIC METABOLIC PANEL Lab Routine Hyperlipidemia with target LDL less than 130 05/30/2023 9:54 AM EDT HEPATIC FUNCTION PANEL Lab Routine Hyperlipidemia with target LDL less than 130 05/30/2023 9:54 AM EDT Health Maintenance Due Date Last Done Comments Zoster Vaccines (2 of 3) 06/09/2016 04/14/2016 *BISPHONATE OR OTHER ACCEPTABLE MEDICATION NEEDED FOR OSTEOPOROSIS (REFER TO SMARTSET #1146) 10/29/2019 COVID-19 Vaccine (3 - Pfizer series) 01/21/2021 11/26/2020, 11/05/2020 DXA Scan 05/02/2022 05/02/2020, 03/09, 02/09/2016, Additional history exists Depression Screening 11/09/2022 11/09/2021 DTaP,Tdap,and Td Vaccines (2 - Td or Tdap) 02/27/2028 02/26/2018 (Discussed) Pneumococcal Vaccine: 65+ Years Completed 03/06/2016, 07/10/2002 VITAMIN D LEVEL ONCE IN A LIFETIME-USE SMARTSET# 23085 Completed 07/14/2020, 02/26/2017, 09/06/2015, Additional history exists Influenza Vaccine (FLU shot) Completed , 06/19/2021, 07/14/2020, Additional history exists GARDASIL-HPV IMMUNIZATION SERIES Aged Out No longer eligible based on patient's age to complete this topic Hepatitis B Aged Out No longer eligi ble based on patient's age to complete this topic MENINGOCOCCAL (MENACTRA/MENVEO) Aged Out No longer eligible based on patient's age to complete this topic documented as of this encounter Medical Devices Not on filedocumented as of this encounter Visit Diagnoses Diagnosis Hyperlipidemia with target LDL less than 130 Other and unspecified hyperlipidemia documented in this encounter Care Teams Director Auto Relationship Specialty Start Date End Date Daniela Castillo, [address] [place] [address] PCP - General Family Medicine 04/27/19 documented as of this encounter
--- OUTSIDE RECORDS SUMMARY | 2023-07-28 09:34 | External Medical Summary | Summary of Care ---
Author Name Unknown Organization [facility] Address [address] [place] [address] Phone [phone] Care Team Providers Care Hydraulic Modeling Engineer Name Role Phone Daniela Castillo DO Primary Care Provider Reason for Visit * Reason Comments Follow Up Depression-daughter Encounter Details Date Type Department Care Team Description 05/30/2023 Office Visit [facility] [address] [place] [address] Daniela Castillo DO [address] [place] [address] Hyperlipidemia with target LDL less than 130*; Age-related osteoporosis without current pathological fracture; Need for influenza vaccination; Localized swelling, mass and lump, neck Allergies Active Allergy Reactions Severity Noted Date [...] on file documented as of this encounter Last Filed Vital Signs Vital Sign Reading Time Taken Comments Blood Pressure 92/62 05/30/2023 8:39 AM EDT Pulse 60 05/30/2023 8:39 AM EDT Temperature - - Respiratory Rate 16 05/30/2023 8:39 AM EDT Oxygen Saturation - - Inhaled Oxygen Concentration - - Weight 47.8 kg (105 lb 6.4 oz) 05/30/2023 8:39 A M EDT Height 149.9 cm (4' 11") 05/30/2023 8:39 AM EDT Body Mass Index 21.29 05/30/2023 8:39 AM EDT documented in this encounter Progress Notes * Daniela Castillo, DO - 05/30/2023 9:14 AM EDT Subjective: Carito Quarles is a 87 year old female. Chief Complaint Patient presents with Follow Up Depression-daughter HPI: 87 year old female here today for a follow-up. She has hx of dyslipidemia, osteoporosis, and recently lost her daughter to pancreatic cancer a few weeks ago, and is tearful today. She currently is still living with her son n law and grandson but plans on moving in with her other son in [place]. Has to find a placed. Has lost weight. Not much appetite. Only thing she would like looked at is on the R side of her neck, a small bump noted a few weeks back. Staying the same size. Has chronic neck pain PHM: Patient Active Problem List Diagnosis Code Hyperlipidemia with target LDL less than 130 E78.5 Age-related osteoporosis without current pathological fracture M81.0 Current Outpatient Medications Medication Sig Dispense Refill VIACTIV 500-100-40 PO CHEW 1 chew twice a day 0 VITAMIN D 1000 UNIT PO CAPS 1 capsule daily Acetaminophen ER 650 MG Oral Tablet Extended Release Take 1 Tablet by mouth in the morning. 0 aspirin enteric coated 81 MG TBEC Take 1 Tablet by mouth in the morning. 100 Tab 3 Restasis 0.05 % Ophthalmic Emulsion (cycloSPORINE) 1 Drop in the morning and 1 Drop before bedtime.affected eye(s). Ventolin HFA 108 (90 Base) MCG/ACT Inhalation Aerosol Solution inhale 2 puffs by mouth every 6 hours if needed for wheezing 18 g 1 Atorvastatin Calcium 40 MG Oral Tablet (Lipitor) TAKE 1/2 TAB BY MOUTH MONDAYS AND THURSDAYS. 24 Tablet 3 No current facility-administered medications for this visit. Review of patient's allergies indicates: Allergen Reactions Ampicillin Hives Sulfa [Sulfa Antibiotics] Dizzy, hives, SOB Objective: BP 92/62 | Pulse 60 | Resp 16 | Ht 1.499 m (4' 11") | Wt 47.8 kg (105 lb 6.4 oz) | BMI 21.29 kg/m| BSA 1.41 m Physical Exam: General: alert, healthy, and no distress Neck: supple, no adenopathy, right side of neck, some soft tissue inflammation. Or cysts. Heart: regular rate & rhythm, no murmur, and no gallops Lungs: chest symmetric with normal AP diameter, no chest deformities noted, no chest wall tenderness, lungs clear to auscultation Abdomen: abdomen soft, non-tender, normal bowel sounds, and no masses or organomegaly Extremities: no edema ASSESSMENT/PLAN: Hyperlipidemia with target LDL less than 130 (Primary) - LIPID PANEL WITH DIRECT LDL IF TG IS HIGH; Future; Expected date: 05/30/2023 - BASIC METABOLIC PANEL; Future; Expected date: 05/30/2023 - HEPATIC FUNCTION PANEL; Future; Expected date: 05/30/2023 Age-related osteoporosis without current pathological fracture - DEXA SCAN/BONE MINERAL AXIAL Need for influenza vaccination - INFLUENZA VACC, QUAD, HIGH DOSE (FLUZONE HD) Localized swelling, mass and lump, neck We talked about doing an US, and she would like to monitor this for now. Has to take bus so we willlook at this again in 6 months. If the bump gets bigger in the meantime to call the office Follow-up: Return in about 6 months (around 11/28/2023). | Check-out note: Needs dexa Needs labs today Daniela Castillo DO documented in this encounter Nursing Notes * Sharon Hanson LPN - 05/30/2023 8:40 AM EDT The patient has been properly identified by confirmation of name and date of . Chief Complaint Patient presents with Follow Up Depression-daughter documented in this encounter Plan of Treatment Upcoming Encounters Date Type Specialty Care Team Description 08/13/2023 Imaging Radiology 11/29/2023 Office Visit Family Medicine Daniela Castillo, DO [address] [place] [address] Pending Results Name Type Priority Associated Diagnoses Date /Time LIPID PANEL WITH DIRECT LDL IF TG IS HIGH Lab Routine Hyperlipidemia with target LDL less than 130 05/30/2023 9:54 AM EDT BASIC METABOLIC PANEL Lab Routine Hyperlipidemia with target LDL less than 130 05/30/2023 9:54 AM EDT HEPATIC FUNCTION PANEL Lab Routine Hyperlipidemia with target LDL less than 130 05/30/2023 9:54 AM EDT Scheduled Orders Name Type Priority Associated Diagnoses Orde r Schedule LIPID PANEL WITH DIRECT LDL IF TG IS HIGH Lab Routine Hyperlipidemia with target LDL less than 130 Expected: 05/30/2023, Expires: 05/30/2024 BASIC METABOLIC PANEL Lab Routine Hyperlipidemia with target LDL less than 130 Expected: 05/30/2023 (Approximate), Expires: 05/29/2024 HEPATIC FUNCTION PANEL Lab Routine Hyperlipidemia with target LDL less than 130 Expected: 05/30/2023 (Approximate), Expires: 05/29/2024 DEXA SCAN/BONE MINERAL AXIAL Medical Imaging Routine Age-related osteoporosis without current pathological fracture Ordered: 05/30/2023 Health Maintenance Due Date Last Done Comments [...] D LEVEL ONCE IN A LIFETIME-USE SMARTSET# [id number] Completed 07/14/2020, 02/26/2017, 09/06/2015, Additional history exists [...] Diagnosis Hyperlipidemia with target LDL less than 130- Primary Other and unspecified hyperlipidemia Age-related osteoporosis without current pathological fracture Senile osteoporosis Need for influenza vaccination Need for prophylactic vaccination and inoculation against influenza Localized swelling, mass and lump, neck Swelling, mass, or lump in head and neck documented in this encounter Care Teams Hydraulic Modeling Engineer Relationship Specialty Start Date End Date Daniela Castillo DO [address] [place] [address] PCP - General Family Medicine 04/27/19 documented as of this encounter
--- OUTSIDE RECORDS SUMMARY | 2023-07-28 09:34 | External Medical Summary ---
Author Name Unknown Address Unknown Organization K01:[facility] [place] [address] [facility] [address] Laboratory Report Ordering Provider Test Date Status SHARON VELASQUEZLISAMISHALakshmi 05/30/2023 09:54:10 Final Observation Date Value Abnormality Reference (Units ) Status Albumin 05/30/2023 09:54:10 4.5 3.8-5.0 (g/dL) Final AST (Aspartate aminotransferase) 05/30/2023 09:54:10 27 10-35 (U/L) Final Alk Phos 05/30/2023 09:54:10 55 35-130 (U/L) Final ALT (Alanine aminotransferase) 05/30/2023 09:54:10 18 10-35 (U/L) Final Bilirubin, Total 05/30/2023 09:54:10 0.4 <=1.2 (mg/dL) Final Bilirubin, Direct 05/30/2023 09:54:10 <0.2 0.0-0.3 (mg/dL) Final Protein 05/30/2023 09:54:10 6.9 6.0-8.3 (g/dL) Final Performing Location [facility] [place] [facility] [address] [facility] [address]
--- OUTSIDE RECORDS SUMMARY | 2023-07-28 09:34 | External Medical Summary ---
Author Name Unknown Address Unknown Organization [id number]:[facility] [place] - [address] [facility] [address] Laboratory Report Ordering Provider Test Date Status BRYANT VELASQUEZ 05/30/2023 09:54:10 Final Observation Date Value Abnormality Reference (Units ) Status Triglyceride 05/30/2023 09:54:10 80 <=174 ( mg/dL) Final Triglyceride Reference Range s (mg/dL):
<150 Acceptable
150-174 Borderline high
175-499 High
>=500 Very high Cholesterol 05/30/2023 09:54:10 185 <200 (mg /dL) Final Total Cholesterol Reference Ranges (mg/dL):
<200 Desirable
200-239 Borderline high
>=240 High HDL 05/30/2023 09:54:10 95 >49 (mg/dL ) Final HDL Cholesterol Reference Ra nges (mg/dL):
>=60 High (Desirable)
<50 Low (Undesirable) For Females
<40 Low (Undesirable) For Males NON-HDL CHOLESTEROL 05/30/2023 09:54:10 90 <=159 (mg/dL) Final Non-HDL Cholesterol Referenc e Range (mg/dL):
<100 Target level for high risk ASCVD patient
<130 Optimal for general population
130-159 Near optimal for general population
160-189 Borderline High
190-219 High
>=220 Very High LDL, (calculated) 05/30/2023 09:54:10 74 <= 129 (mg/dL) Final LDL Cholesterol Reference Ra nges (mg/dL):
<70 Target level for high risk ASCVD patient
<100 Optimal for general population
100-129 Near optimal for general population
130-159 Borderline high
160-189 High
>=190 Very high Performing Location [facility]ATORY [facility] [place] - [address] [facility] [address]
--- OUTSIDE RECORDS SUMMARY | 2023-07-28 09:34 | External Medical Summary ---
Author Name Unknown Address Unknown Organization [id number]:[facility]ORY [facility] [place] - [address] [facility] [address] Laboratory Report Ordering Provider Test Date Status BRYANT VELASQUEZ 05/30/2023 09:54:10 Final Observation Date Value Abnormality Reference (Units ) Status BUN 05/30/2023 09:54:10 15 6-20 (mg/dL) Final Creatinine 05/30/2023 09:54:10 0.9 0.5-1.0 (mg/dL) Final Glomerular filtration rate/1.73 sq M.predicted [Volume Rate/Area] in Serum, Plasma or Blood by Creatinine-based formula (CKD-EPI) 05/30/2023 09:54:10 66 >=60 (mL/min) Final eGFR is calculated based on the CKD-EPI 2020 equation SODIUM 05/30/2023 09:54:10 143 135-146 (m mol/L) Final Potassium 05/30/2023 09:54:10 3.9 3.5-5.1 (m mol/L) Final Cl 05/30/2023 09:54:10 105 98-107 (mm ol/L) Final CO2 05/30/2023 09:54:10 28 22-32 (mmo l/L) Final Anion gap 05/30/2023 09:54:10 10 7-15 (mmol /L) Final Glucose 05/30/2023 09:54:10 83 70-120 (mg /dL) Final Calcium 05/30/2023 09:54:10 9.9 8.4-10.2 ( mg/dL) Final Performing Location [facility]ORY [facility] [place] - [address] [place] [address]
--- OUTSIDE RECORDS SUMMARY | 2023-07-28 09:34 | External Medical Summary | Summary of Care ---
Author Name Unknown Organization [facility] Address [address] [place] [address] Phone [phone] Care Team Providers Care Administrator Social Welfare Name Role Phone Daniela Castillo DO Primary Care Provider Reason for Visit * Reason Onset Date Comments Test Results 06/12/2023 Encounter Details Date Type Department Care Team Description 06/12/2023 Telephone [facility] [address] [place] [address] Daniela Castillo DO [address] [place] [address] Test Results Allergies Active Allergy Reactions Severity Noted Date Comments Ampicillin 08/06/2006 Hives Sulfa Antibiotics 08/06/2006 Dizzy, hives, SOB documented as of this encounter (statuses as of 06/13/2023) Medications Medication Sig Dispensed Refills Start Date [...] as of this encounter (statuses as of 06/13/2023) Active Problems Problem Noted Date Age-related osteoporosis without current pathological fracture 07/06/2020 Hyperlipidemia with target LDL less than 130 03/06/2016 Overview: ASCVD percentage risk: 19.2%- My G sent documented as of this encounter (statuses as of 06/13/2023) Resolved Problems Problem Noted Date Resolved Date [...] as of this encounter (statuses as of 06/13/2023) Immunizations Name Administration Dates Next Due COVID-19 mRNA, LNP-s, No Pre serve, 2-Dose Series (Pfizer) 11/26/2020,11/05/2020 Pneumococcal Conjugate Vacc, 13 Valent (Prevnar) 03/06/2016 Pneumococcal Polysaccharide PPV23 (Pneumovax) 07/10/2002 SEASONAL INFLUENZA, PF, 6 M & Above, IM , (FLULAVAL or FLUZONE) 06/12/2018 Season Influenza, Quad, PF, Adjuvanted, 65+ Yrs, IM (FLUAD) 07/14/2020 Seasonal Influenza, Quadriva lent Hd (Fluzone Hd) [...] on file documented as of this encounter Miscellaneous Notes * Telephone Encounter - Queenie Negrete CPhT - 06/13/2023 2:17 PM EDT Pt returning phone call and advised of message. Thank you, Queenie Negrete [facility] (formerly [facility]) 06/13/2023, 2:17 PM * Telephone Encounter - Demi Camarillo LPN - 06/12/2023 3:10 PM EDT Attempted to call, no answer, left message to return call When patient calls back, please give the message (call center receptionist may give patient this message) * Telephone Encounter - Demi Camarillo LPN - 06/12/2023 3:07 PM EDT ----- Message from Daniela Castillo DO sent at 06/06/2023 2:25 PM EDT ----- Recent lipid profile was normal. documented in this encounter Plan of Treatment Upcoming Encounters Date Type Specialty Care Team Description 08/13/2023 Imaging Radiology 11/29/2023 Office Visit Family Medicine Daniela Castillo DO [address] [place] [address] Health Maintenance Due Date Last Done Comments Zoster Vaccines (2 of 3) 06/09/2016 04/14/2016 *BISPHONATE OR OTHER ACCEPTABLE MEDICATION NEEDED FOR OSTEOPOROSIS (REFER TO SMARTSET #1146) 10/29/2019 DXA Scan 05/02/2022 05/02/2020, 03/09, 02/09/2016, Additional history exists Depression Screening 11/09/2022 11/09/2021 COVID-19 Vaccine (3 - season) 2023 11/26/2020, 11/05/2020 DTaP,Tdap,and Td Vaccines (2 - Td or Tdap) 02/27/2028 02/26/2018 (Discussed) Pneumococcal Vaccine: 65+ Years Completed 03/06/2016, 07/10/2002 VITAMIN D LEVEL ONCE IN A LIFETIME-USE SMARTSET# 23143 Completed 07/14/2020, 02/26/2017, 09/06/2015, Additional history exists [...] Not on filedocumented as of this encounter Care Teams Administrator Social Welfare Relationship Specialty Start Date End Date Daniela Castillo, [address] [place] [address] PCP - General Family Medicine 04/27/19 documented as of this encounter
[2023-07-28] MEDS ORDERED: POTASSIUM CHLORIDE CRTAB 20 MEQ TABCR PO ONE (09:36)
[2023-07-28] MEDS: ACETAMINOPHEN 325 MG TAB PO PRN (12:02)
--- NOTE | 2023-07-28 15:42 | Hospitalist Progress Note ---
Date of Service July 28, 2023 Assessment & Plan (1) Sepsis: Plan: Sepsis Pneumonia likely due to Aspiration --CTA:No CT evidence of pulmonary embolism. Patchy peripheral consolidations within the posterior right upper lobe and the lingula concerning for infectious etiologies. Also involves the right middle lobe to a lesser extent. -- Procalcitonin 0.19 --Blood cultures pending --Sputum cultures pending --Continue clindamycin, cefdinir Saturating well on room air Adjust antibiotics as needed Speech therapy evaluation Aspiration precautions Mild troponin elevation Likely secondary to above Check resting echo H/O TIA HLP Continue aspirin, statin H/O PUD: not on meds DVT Px: Lovenox SQ Code Status Full code Disposition PT OT prior to discharge Admission and Anticipated Discharge Date Admission Date: July 28, 2023 Subjective Patient is seen and examined at bedside States having generalized weakness Less cough today Denies any dyspnea Had speech eval today Denies any chest pain, dyspnea No other complaints Review of Systems Review of Systems: All systems reviewed & are unremarkable except as noted in Subjective Physical Exam Physical Exam: Physical Exam: Vitals signs as noted above General Appearance:Thin, frail, Elderly, no apparent distress Head: normocephalic, Atraumatic Eyes: normal inspection, EOMI Neck: supple, Trachea midline Respiratory/Chest: Decreased breath sounds, CTA, No accessory muscle use Cardiovascular: S1, S2, No murmur Abdomen/GI:Soft, Non tender, Bowel sounds present Extremities/Musculoskeletal:normal inspection, no edema Neurologic/Psych:AAOX3, grossly no focal neurological deficits Skin: normal color, warm Results & Data Results & Data Vital Signs (Past 12 Hours) Vital Signs Pulse Pulse Pulse Resp BP BP Pulse Ox 07/28/23 14:00 80 15 07/28/23 13:00 88 22 07/28/23 12:00 94 H 21 96 07/28/23 11:00 97 H 22 95 07/28/23 10:00 91 H 24 93 07/28/23 09:00 100 H 22 93 07/28/23 08:36 83 20 96 07/28/23 08:00 88 22 96 07/28/23 08:00 125/74 07/28/23 07:00 129/68 07/28/23 07:00 82 22 94 07/28/23 07:00 85 20 129/68 92 11/19/23 06:00 88 22 96 07/28/23 06:00 135/74 07/28/23 05:00 82 28 H 94 07/28/23 05:00 133/71 07/28/23 04:00 92 H 30 H 93 07/28/23 04:00 128/67 O2 Del Method 07/28/23 14:00 07/28/23 13:00 07/28/23 12:00 07/28/23 11:00 07/28/23 10:00 07/28/23 09:00 07/28/23 08:36 Room Air 07/28/23 08:00 07/28/23 08:00 07/28/23 07:00 07/28/23 07:00 07/28/23 07:00 Room Air 07/28/23 06:00 07/28/23 06:00 07/28/23 05:00 07/28/23 05:00 07/28/23 04:00 07/28/23 04:00 Laboratory Results Short CBC 07/27/23 07/28/23 Range/Units 20:43 00:50 WBC 18.38 H 16.33 H (4.8-10.8) K/ul Hgb 12.9 11.0 L (12.0-16.0) g/dl Hct 37.7 32.1 L (37.0-47.0) % Plt Count 306 248 (130-400) K/uL [facility] 07/27/23 07/28/23 20:43 00:50 Sodium 140 137 Potassium 2.8 L 3.1 L Chloride 104 106 Carbon Dioxide 25 25 BUN 13 10 Creatinine 0.67 0.66 Glucose 122 H 137 H Calcium 10.0 8.4 L Liver Function 07/27/23 Range/Units 20:43 Total Bilirubin 0.7 (0.2-1.0) mg/dl AST 30 (13-39) U/L ALT 19 (7-52) U/L Alkaline Phosphatase 72 (34-104) U/L Albumin 4.2 (3.4-5.0) gm/dl Urine 07/27/23 Range/Units 22:15 Urine Color Yellow Urine Appearance Clear (Clear) Urine pH 7.0 (4.5-7.5) Ur Specific [place] 1.024 (1.000-1.030) Urine Protein 3+ H (Negative) Urine Glucose (UA) Negative (Negative)
[2023-07-28] MEDS: DOCUSATE SODIUM/SENNA 50/8.6MG TAB PO SCH (19:52)
[2023-07-28] MEDS: ACETAMINOPHEN 325 MG TAB PO SCH (19:53)
[2023-07-28] MEDS: CEFDINIR 300 MG CAP PO SCH (19:54)
[2023-07-29] MEDS: CLINDAMYCIN/D5W 600 MG/50 ML BAG IV SCH ×3 (00:24→17:21)
[2023-07-29 07:31] LABS: Hematocrit (blood only) 30.4 % (37.0-47.0); Hemoglobin 10.4 g/dl (12.0-16.0); Mean Corpuscular Hemoglobin 34.9 pg (25.0-34.0); Mean Corpuscular Hgb Conc 34.2 g/dL (32.0-36.0); Mean Platelet Volume 9.5 fL (9.4-12.4); Platelet Count 266 K/uL (130-400); RDW Coefficient of Variation 13.1 % (11.5-14.5); RDW Standard Deviation 49.3 fL (36.4-46.3); Red Blood Count 2.98 M/uL (4.20-5.40); White Blood Count 12.29 K/ul (4.8-10.8)
[2023-07-29] MEDS: CEFDINIR 300 MG CAP PO SCH ×2 (08:17→20:22)
[2023-07-29] MEDS: ADVANCED PROBIOTIC 1250 MG CAPSULE PO SCH (08:17)
[2023-07-29] MEDS: ENOXAPARIN INJ 30 MG/0.3 ML SYR SQ SCH (08:18)
[2023-07-29] MEDS: ASPIRIN 81 MG ECTAB PO SCH (08:18)
[2023-07-29] MEDS: ACETAMINOPHEN 325 MG TAB PO PRN (08:21)
[2023-07-29] MEDS ORDERED: ATORVASTATIN 20 MG TAB PO SCH (09:00)
[2023-07-29 09:04] LABS: BUN Creatinine Ratio 12.9 (10-20); Calcium 8.3 mg/dl (8.6-10.3); Creatinine Clr Calc Pharmacy 42.8 ml/min; Est GFR (African American) 93.3 ml/min; Est GFR (Non-African American) 80.5 ml/min; Magnesium 1.7 mg/dl (1.7-2.4); Potassium 3.4 mmol/L (3.5-5.1)
[2023-07-29] MEDS ORDERED: POTASSIUM CHLORIDE 20 MEQ/15 ML UDC PO ONE (11:20)
--- NOTE | 2023-07-29 15:37 | Hospitalist Progress Note ---
Date of Service July 29, 2023 Assessment & Plan (1) Sepsis: Plan: Sepsis Pneumonia likely due to Aspiration --CTA:No CT evidence of pulmonary embolism. Patchy peripheral consolidations within the posterior right upper lobe and the lingula concerning for infectious etiologies. Also involves the right middle lobe to a lesser extent. -- Procalcitonin 0.19 --Blood cultures no growth to date --Sputum cultures : Heavy normal eugenio --Continue clindamycin, cefdinir Saturating well on room air Adjust antibiotics as needed Speech therapy evaluation Aspiration precautions Leukocytosis trending down PT OT prior to discharge Mild troponin elevation Likely secondary to above --ECHO: Mild concentric LVH. Left ventricle wall motion is normal. EF 55 to 60%. Mild mitral regurgitation. Significant mitral regurgitation is absent. There is no mitral valve stenosis. Grade 1 diastolic dysfunction. Patient denies any chest pain currently H/O TIA HLP Continue aspirin, statin H/O PUD: not on meds DVT Px: Lovenox SQ Code Status Full code Disposition PT OT prior to discharge Admission and Anticipated Discharge Date Admission Date: July 28, 2023 Subjective Patient is seen and examined at bedside States feeling better today Less cough, feels tired Denies any dyspnea, dizziness, nausea, vomiting, abdominal pain Tolerating current diet Saturating well on room air Review of Systems Review of Systems: All systems reviewed & are unremarkable except as noted in Subjective Physical Exam Physical Exam: Physical Exam: Vitals signs as noted above General Appearance:Thin, frail, Elderly, no apparent distress Head: normocephalic, Atraumatic Eyes: normal inspection, EOMI Neck: supple, Trachea midline Respiratory/Chest: Decreased breath sounds, CTA, No accessory muscle use Cardiovascular: S1, S2, No murmur Abdomen/GI:Soft, Non tender, Bowel sounds present Extremities/Musculoskeletal:normal inspection, no edema Neurologic/Psych:AAOX3, grossly no focal neurological deficits Skin: normal color, warm Results & Data Results & Data Vital Signs (Past 12 Hours) Vital Signs Temp Pulse Pulse Resp BP Pulse Ox Pulse Ox 07/29/23 14:40 95 07/29/23 11:45 36.5 C 88 16 108/68 95 07/29/23 08:36 07/29/23 07:51 36.8 C 92 H 16 141/87 H 94 07/29/23 07:23 88 Pulse Ox O2 Del Method O2 Flow Rate O2 Flow Rate 07/29/23 14:40 96 0 0 07/29/23 11:45 Room Air 07/29/23 08:36 Room Air 07/29/23 07:51 Room Air 07/29/23 07:23 Laboratory Results Short CBC 07/29/23 Range/Units 06:20 WBC 12.29 H (4.8-10.8) K/ul Hgb 10.4 L (12.0-16.0) g/dl Hct 30.4 L (37.0-47.0) % Plt Count 266 (130-400) K/uL BMP 07/29/23 06:20 Sodium 138 Potassium 3.4 L Chloride 108 H Carbon Dioxide 24 BUN 8 Creatinine 0.62 Glucose 107 H Calcium 8.3 L
[2023-07-29] MEDS: ACETAMINOPHEN 325 MG TAB PO SCH (20:22)
[2023-07-29] MEDS: DOCUSATE SODIUM/SENNA 50/8.6MG TAB PO SCH (20:23)
[2023-07-30] MEDS: CLINDAMYCIN/D5W 600 MG/50 ML BAG IV SCH (00:28)
[2023-07-30 07:30] LABS: Hemoglobin 10.8 g/dl (12.0-16.0); Mean Corpuscular Hgb Conc 34.8 g/dL (32.0-36.0); Mean Corpuscular Volume 100.3 fL (80.0-100.0); Mean Platelet Volume 9.4 fL (9.4-12.4); Platelet Count 271 K/uL (130-400); RDW Coefficient of Variation 12.9 % (11.5-14.5); RDW Standard Deviation 47.8 fL (36.4-46.3); Red Blood Count 3.09 M/uL (4.20-5.40); White Blood Count 9.92 K/ul (4.8-10.8)
[2023-07-30 08:15] LABS: Calcium 8.3 mg/dl (8.6-10.3); Magnesium 1.8 mg/dl (1.7-2.4); Potassium 3.5 mmol/L (3.5-5.1)
[2023-07-30 08:21] LABS: BUN Creatinine Ratio 11.7 (10-20); Creatinine Clr Calc Pharmacy 44.2 ml/min; Est GFR (African American) 94.3 ml/min; Est GFR (Non-African American) 81.4 ml/min
[2023-07-30] MEDS: cefTRIAXone SODIUM 2,000 MG in DEXTROSE 5 % MINI-B 50 ML IV SCH (08:45)
[2023-07-30] MEDS: ADVANCED PROBIOTIC 1250 MG CAPSULE PO SCH (08:48)
[2023-07-30] MEDS: ENOXAPARIN INJ 30 MG/0.3 ML SYR SQ SCH (08:48)
[2023-07-30] MEDS: ASPIRIN 81 MG ECTAB PO SCH (08:48)
[2023-07-30] MEDS: DOXYCYCLINE HYCLATE 100 MG CAP PO SCH ×2 (09:41→21:06)
[2023-07-30] MEDS ORDERED: ALBUT/IPRATROP 3MG/0.5MG NEB 3 ML VIAL NEB PRN (10:15)
[2023-07-30] MEDS: ALBUT/IPRATROP 3MG/0.5MG NEB 3 ML VIAL NEB SCH ×3 (10:32→19:50)
[2023-07-30] MEDS: SODIUM CHLOR 7% 4 ML NEB NEB SCH ×2 (10:33→19:50)
--- NOTE | 2023-07-30 13:08 | Hospitalist Progress Note ---
Date of Service July 30, 2023 Assessment & Plan (1) Sepsis: Plan: Sepsis, POA Pneumonia Patient presented with cough with sputum production. --CTA on admission personally reviewed:No CT evidence of pulmonary embolism. Patchy peripheral consolidations within the posterior right upper lobe and the lingula concerning for infectious etiologies. Also involves the right middle lobe to a lesser extent. -- Procalcitonin 0.19 --Blood cultures no growth to date --Sputum cultures : Heavy normal eugenio Started on IV ceftriaxone and doxycycline. Plan to continue for 7 days Aspiration precautions Continue airway clearance therapy with hypertonic saline, DuoNebs, flutter valve Continue to monitor respiratory status; supplemental oxygen if SPO2 is less than 90% Mild troponin elevation Demand ischemia --ECHO: Mild concentric LVH. Left ventricle wall motion is normal. EF 55 to 60%. Mild mitral regurgitation. Significant mitral regurgitation is absent. There is no mitral valve stenosis. Grade 1 diastolic dysfunction. Patient denies any chest pain currently H/O TIA HLP Continue aspirin, statin H/O PUD: not on meds DVT Px: Lovenox SQ Code Status Full code Disposition PT OT recommends home. Patient continues to require inpatient care for multifocal pneumonia requiring IV antibiotics. Time spent evaluating patient, direct bedside care, chart review, placing orders, interpretation of diagnostic studies, discussion with consultants, patient, and family members, as well as other required patient management activities is 50 minutes Please note the above document was generated using voice recognition software. It may contain grammatical, syntax or spelling errors. Any formal questions or concerns about the content, text or information contained within the body of this dictation should be directly addressed to the provider for clarification Admission and Anticipated Discharge Date Admission Date: July 28, 2023 Subjective Patient seen and examined at bedside. She reports that she is feeling tired than yesterday. She reports coughing multiple times as well with mucoid sputum production. Review of Systems Review of Systems: All systems reviewed & are unremarkable except as noted in Subjective Physical Exam Physical Exam: Physical Exam: Vitals signs as noted above General Appearance:Thin, frail, Elderly, no apparent distress Head: normocephalic, Atraumatic Eyes: normal inspection, EOMI Neck: supple, Trachea midline Respiratory/Chest: Decreased breath sounds, CTA, No accessory muscle use Cardiovascular: S1, S2, No murmur Abdomen/GI:Soft, Non tender, Bowel sounds present Extremities/Musculoskeletal:normal inspection, no edema Neurologic/Psych:AAOX3, grossly no focal neurological deficits Skin: normal color, warm Results & Data Results & Data Vital Signs (Past 12 Hours) Vital Signs Temp Pulse Pulse Resp BP Pulse Ox O2 Del Method 07/30/23 10:59 36.7 C 108 H 18 155/85 H 94 Room Air 07/30/23 10:35 99 H 18 96 Room Air 07/30/23 07:43 76 07/30/23 07:39 Room Air 07/30/23 04:04 36.7 C 83 18 154/65 H 94 Room Air Laboratory Results Laboratory Results WBC 9.92 K/ul (4.8-10.8) 07/30/23 06:58 RBC 3.09 M/uL (4.20-5.40) L 07/30/23 06:58 Hgb 10.8 g/dl (12.0-16.0) L 07/30/23 06:58 Hct 31.0 % (37.0-47.0) L 07/30/23 06:58 MCV 100.3 fL (80.0-100.0) H 07/30/23 06:58 MCH 35.0 pg (25.0-34.0) H 07/30/23 06:58 MCHC 34.8 g/dL (32.0-36.0) 07/30/23 06:58 RDW Std Deviation 47.8 fL (36.4-46.3) H 07/30/23 06:58 RDW Coeff of Mark 12.9 % (11.5-14.5) 07/30/23 06:58 Plt Count 271 K/uL (130-400) 07/30/23 06:58 MPV 9.4 fL (9.4-12.4) 07/30/23 06:58 Immature Gran % (Auto) 0.6 % 07/28/23 00:50 Neut % (Auto) 84.8 % 07/28/23 00:50 Lymph % (Auto) 7.6 % 07/28/23 00:50 Luna % (Auto) 6.5 % 07/28/23 00:50 Eos % (Auto) 0.1 % 07/28/23 00:50 Baso % (Auto) 0.4 % 07/28/23 00:50 Neut # (Auto) 13.86 K/uL (1.40-6.50) H 07/28/23 00:50 Lymph # (Auto) 1.24 K/uL (1.20-3.40) 07/28/23 00:50 Luna # (Auto) 1.06 K/uL (0.11-0.59) H 07/28/23 00:50 Eos # (Auto) 0.01 K/uL (0.00-0.50) 07/28/23 00:50 Baso # (Auto) 0.06 K/uL (0.00-0.20) 07/28/23 00:50 Immature Gran # (Auto) 0.10 K/uL (0.01-0.20) 07/28/23 00:50 APTT 31.2 Seconds (21.0-31.0) H 07/27/23 20:43 PTT Ratio 1.1 07/27/23 20:43 Sodium 140 mmol/L (136-145) 07/30/23 06:58 Potassium 3.5 mmol/L (3.5-5.1) 07/30/23 06:58 Chloride 109 mmol/L (98-107) H 07/30/23 06:58 Carbon Dioxide 25 mmol/L (21-32) 07/30/23 06:58 Anion Gap 6 (3-11) 07/30/23 06:58 BUN 7 mg/dl (6-23) 07/30/23 06:58 Creatinine 0.60 mg/dl (0.6-1.2) 07/30/23 06:58 Est Cr Clr Drug Dosing 44.2 ml/min 07/30/23 06:58 Est GFR ( Amer) 94.3 ml/min 07/30/23 06:58 Est GFR (Non-Af Amer) 81.4 ml/min 07/30/23 06:58 BUN/Creatinine Ratio 11.7 (10-20) 07/30/23 06:58 Glucose 100 mg/dl (70-99(Fasting)) H 07/30/23 06:58 Estimat Average Glucose 114 mg/dl 07/27/23 20:43 Hemoglobin A1c 5.6 % (4.5-5.6) 07/27/23 20:43 Calcium 8.3 mg/dl (8.6-10.3) L 07/30/23 06:58 Magnesium 1.8 mg/dl (1.7-2.4) 07/30/23 06:58 Total Bilirubin 0.7 mg/dl (0.2-1.0) 07/27/23 20:43 AST 30 U/L (13-39) 07/27/23 20:43 ALT 19 U/L (7-52) 07/27/23 20:43 Alkaline Phosphatase 72 U/L (34-104) 07/27/23 20:43 Troponin I High Sens 24.5 pg/ml (0-14) H 07/28/23 05:18 C-Reactive Protein 16.55 mg/dl (0-0.5) H 07/27/23 20:43 Total Protein 8.1 gm/dl (6.0-8.3) 07/27/23 20:43 Albumin 4.2 gm/dl (3.4-5.0) 07/27/23 20:43 Globulin 3.9 gm/dl (2.5-4.0) 07/27/23 20:43 Albumin/Globulin Ratio 1.1 (0.9-2) 07/27/23 20:43 Procalcitonin 0.19 ng/ml (0-0.5) 07/27/23 20:43 Urine Color Yellow 07/27/23 22:15 Urine Appearance Clear (Clear) 07/27/23 22:15 Urine pH 7.0 (4.5-7.5) 07/27/23 22:15 Ur Specific [place] 1.024 (1.000-1.030) 07/27/23 22:15 Urine Protein 3+ (Negative) H 07/27/23 22:15 Urine Glucose (UA) Negative (Negative) 07/27/23 22:15 Urine Ketones 2+ (Negative) H 07/27/23 22:15 Urine Blood Trace (Negative) H 07/27/23 22:15 Urine Nitrite Negative (Negative) 07/27/23 22:15 Urine Bilirubin Negative (Negative) 07/27/23 22:15 Urine Urobilinogen Negative (Negative) 07/27/23 22:15 Ur Leukocyte Esterase Trace (Negative) H 07/27/23 22:15 Urine WBC (Auto) 1-5 /hpf (0-5) 07/27/23 22:15 Urine RBC (Auto) 10-30 /hpf (0-4) H 07/27/23 22:15 U Hyaline Cast (Auto) 1-5 /lpf (0-5) 07/27/23 22:15 U Epithel Cells (Auto) >30 /lpf (0-5) H 07/27/23 22:15 Urine Bacteria (Auto) Negative (Negative) 07/27/23 22:15 Adenovirus (PCR) Not Detected (NotDetected) 07/27/23 20:05 B. pertussis DNA (PCR) Not Detected (NotDetected) 07/27/23 20:05 B.parapertussis DNA PCR Not Detected (NotDetected) 07/27/23 20:05 C. pneumoniae DNA (PCR) Not Detected (NotDetected) 07/27/23 20:05 Coronavirus OC43 (PCR) Not Detected (NotDetected) 07/27/23 20:05 Coronavirus HKU1 (PCR) Not Detected (NotDetected) 07/27/23 20:05 Coronavirus 229E (PCR) Not Detected (NotDetected) 07/27/23 20:05 SARS-CoV-2 (PCR) Not Detected (NotDetected) 07/27/23 20:05 Coronavirus NL63 (PCR) Not Detected (NotDetected) 07/27/23 20:05 Human Metapneumovir PCR Not Detected (NotDetected) 07/27/23 20:05 Influenza Type A (PCR) Not Detected (NotDetected) 07/27/23 20:05 Influenza Type B (PCR) Not Detected (NotDetected) 07/27/23 20:05 M. pneumoniae (PCR) Not Detected (NotDetected) 07/27/23 20:05 Parainfluenza 1 (PCR) Not Detected (NotDetected) 07/27/23 20:05 Parainfluenza 2 (PCR) Not Detected (NotDetected) 07/27/23 20:05 Parainfluenza 3 (PCR) Not Detected (NotDetected) 07/27/23 20:05 Parainfluenza 4 (PCR) Not Detected (NotDetected) 07/27/23 20:05 RSV (PCR) Not Detected (NotDetected) 07/27/23 20:05 Entero/Rhino (PCR) Not Detected (NotDetected) 07/27/23 20:05 Impressions Chest X-Ray 07/27/23 20:04 SINGLE VIEW CHEST CLINICAL HISTORY: Flulike symptoms. FINDINGS: A PA chest radiograph is obtained. No prior studies are available for comparison at the time of dictation. The cardiomediastinal silhouette is top normal for projection and noting atherosclerotic calcification of the thoracic aorta. Nonspecific interstitial thickening is likely chronic. There is a 3.2 cm lobular density projecting over the right upper lobe. Mild patchy opacities are also seen projecting over the left midlung. No large pleural effusion or pneumothorax is seen. The skeletal structures are osteopenic. The bony thorax is grossly intact. Degenerative change and scoliosis is noted in the spine. IMPRESSION: 1. There is a 3.2 cm lobular/nodular opacity projecting over the right upper lung as well as mild patchy opacities in the left midlung. Although these findings could be on an infectious/ inflammatory basis, a chest CT is recommended for further assessment and to exclude underlying pulmonary neoplasm. 2. No large pleural effusion is identified. ACT 112: Negative or not required by law. Electronically signed by: Zach Larios M.D. 07/27/2023 8:34 PM Chest CTA 07/27/23 20:57 Exam(s): CTA CHEST IV Amt: OPTIRAY [id number] EXAM: CT Angiography Chest With Intravenous Contrast CLINICAL HISTORY: Reason for exam: PE. TECHNIQUE: Axial computed tomographic angiography images of the chest with intravenous contrast. CTDI is 14.48 mGy and DLP is 210.42 mGy-cm. Automated exposure control was utilized for the study. A dose lowering technique was utilized adhering to the principles of ALARA. MIP reconstructed images were created and reviewed. COMPARISON: No relevant prior studies available. FINDINGS: Pulmonary arteries: Unremarkable. No CT evidence of pulmonary embolism. Aorta: No acute findings. No thoracic aortic aneurysm. Lungs: Patchy peripheral consolidations within the posterior right upper lobe and the lingula concerning for infectious etiologies. Also involves the right middle lobe to a lesser extent. No consolidation. Pleural space: Unremarkable. No significant effusion. No pneumothorax. Heart: Unremarkable. No cardiomegaly. No significant pericardial effusion. No evidence of RV dysfunction. Bones/joints: Moderate T7 compression fracture which is favored to be remote. No dislocation. Soft tissues: Unremarkable. Lymph nodes: Unremarkable. No enlarged lymph nodes. IMPRESSION: 1. No CT evidence of pulmonary embolism. 2. Patchy peripheral consolidations within the posterior right upper lobe and the lingula concerning for infectious etiologies. Also involves the right middle lobe to a lesser extent. Electronically signed by: Robert Banuelos M.D. 07/27/23 23:54 PM
[2023-07-30] MEDS: ACETAMINOPHEN 325 MG TAB PO SCH (21:06)
[2023-07-30] MEDS: DOCUSATE SODIUM/SENNA 50/8.6MG TAB PO SCH (21:06)
--- NOTE | 2023-07-31 05:44 | Electrocardiogram Report ---
Test Reason : Blood Pressure : / mmHG Vent. Rate : 095 BPM Atrial Rate : 095 BPM P-R Int : 134 ms QRS Dur : 078 ms QT Int : 316 ms P-R-T Axes : 064 -19 -06 degrees QTc Int : 397 ms Normal sinus rhythm Inferior infarct , age undetermined Anterior infarct , age undetermined Nonspecific ST and T wave abnormality Abnormal ECG No previous ECGs available Confirmed by Onur Mckenzie ([id number]) on 07/31/2023 5:44:01 AM Referred By: REFERRED SELF Confirmed By:Onur Mckenzie
[2023-07-31] MEDS: ALBUT/IPRATROP 3MG/0.5MG NEB 3 ML VIAL NEB SCH ×3 (06:55→13:55)
[2023-07-31] MEDS: SODIUM CHLOR 7% 4 ML NEB NEB SCH (06:55)
[2023-07-31] MEDS: ASPIRIN 81 MG ECTAB PO SCH (07:55)
[2023-07-31] MEDS: DOXYCYCLINE HYCLATE 100 MG CAP PO SCH (07:55)
[2023-07-31] MEDS: ADVANCED PROBIOTIC 1250 MG CAPSULE PO SCH (07:56)
[2023-07-31] MEDS: ENOXAPARIN INJ 30 MG/0.3 ML SYR SQ SCH ×2 (07:59→08:01)
[2023-07-31] MEDS: cefTRIAXone SODIUM 2,000 MG in DEXTROSE 5 % MINI-B 50 ML IV SCH (07:59)
[2023-07-31 08:08] LABS: BUN Creatinine Ratio 13.3 (10-20); Basophils # (auto) 0.07 K/uL (0.00-0.20); Basophils % (auto) 0.7 %; Calcium 8.8 mg/dl (8.6-10.3); Creatinine Clr Calc Pharmacy 44.2 ml/min; Eosinophils # (auto) 0.13 K/uL (0.00-0.50); Eosinophils % (auto) 1.4 %; Est GFR (African American) 94.3 ml/min; Est GFR (Non-African American) 81.4 ml/min; Hematocrit (blood only) 32.1 % (37.0-47.0); Hemoglobin 11.3 g/dl (12.0-16.0); Immature Granulocytes # (auto) 0.09 K/uL (0.01-0.20); Lymphocytes # (auto) 1.63 K/uL (1.20-3.40); Lymphocytes % (auto) 17.2 %; Mean Corpuscular Hemoglobin 34.5 pg (25.0-34.0); Mean Corpuscular Hgb Conc 35.2 g/dL (32.0-36.0); Mean Corpuscular Volume 97.9 fL (80.0-100.0); Mean Platelet Volume 9.8 fL (9.4-12.4); Monocytes # (auto) 0.67 K/uL (0.11-0.59); Monocytes % (auto) 7.1 %; Neutrophils # (auto) 6.87 K/uL (1.40-6.50); Neutrophils % (auto) 72.6 %; Platelet Count 333 K/uL (130-400); RDW Coefficient of Variation 12.9 % (11.5-14.5); RDW Standard Deviation 46.6 fL (36.4-46.3); Red Blood Count 3.28 M/uL (4.20-5.40); White Blood Count 9.46 K/ul (4.8-10.8)
[2023-07-31 11:24] VITALS: TEMP 97.5
[2023-07-31] MEDS ORDERED: POTASSIUM CHLORIDE CRTAB 20 MEQ TABCR PO STA (12:20)
[2023-07-31 13:57] VITALS: RESP 16
--- NOTE | 2023-07-31 14:04 | Discharge Summary ---
Date of Service July 31, 2023 Admission HPI Per Admitting Provider History obtained from patient, family, and records. Medical history significant for TIA, hyperlipidemia, PUD as per records. 5 days ago, patient noted junky cough symptoms. Not sure about sick contacts. Has received COVID-19 vaccination. Admits to choking sometimes with meals/water intake. No chest pain. Denies fluid retention. Some weight loss following recent demise of daughter with pancreatic cancer. Patient given Ceftriaxone at the ER. Medical History as above Surgical History : PAULA, partial colectomy for diverticulitis Family History : Pancreatic cancer Personal/Social history : Non-smoker, no EtOH intake, retired bank accountant Admission Exam Per Admitting Provider GENERAL: Slightly uncomfortable, frail, minimal respiratory distress SKIN: Normal color, warm HEENT: [place] palpebral conjunctivae, no ptosis, dry buccal mucosa NECK : Supple, no tenderness CHEST : Decreased breath sounds, scattered expiratory wheezes, no tenderness HEART : RRR, no obvious murmurs ABDOMEN: no distention, nontender EXTREMITIES : No LE swelling/tenderness, no other conspicuous deformities noted NEUROLOGIC : Coherent, no facial asymmetry, no other gross focality Principal Diagnosis Sepsis, POA Pneumonia Discharge Exam Physical Exam: Vitals signs as noted above General Appearance:Thin, frail, Elderly, no apparent distress Head: normocephalic, Atraumatic Eyes: normal inspection, EOMI Neck: supple, Trachea midline Respiratory/Chest: Bilateral clear breath sound Cardiovascular: S1, S2, No murmur Abdomen/GI:Soft, Non tender, Bowel sounds present Extremities/Musculoskeletal:normal inspection, no edema Neurologic/Psych:AAOX3, grossly no focal neurological deficits Skin: normal color, warm Discharge Data Allergies Allergy/AdvReac Type Severity Reaction Status Date / Time ampicillin Allergy Unknown HIVES Verified 07/28/23 00:08 Sulfa (Sulfonamide Allergy Unknown HIVES Verified 07/28/23 00:08 Antibiotics) Ordered Studies 07/27/23 20:57 CT angio chest PE protocol Stat Hospital Course (1) Sepsis: Sepsis, POA Pneumonia Patient presented with cough with sputum production. CTA on admission showed patchy peripheral consolidation in right posterior upper lobe and lingula. noPE Patient was treated with IV antibiotics during the hospitalization. She was also treated with airway clearance therapy and DuoNebs. Patient continues to saturate well in room air throughout the hospitalization. She was discharged home on oral antibiotic. Patient to follow-up with primary care doctor. Mild troponin elevation Demand ischemia ECHO: Mild concentric LVH. Left ventricle wall motion is normal. EF 55 to 60%. Mild mitral regurgitation. Significant mitral regurgitation is absent. There is no mitral valve stenosis. Grade 1 diastolic dysfunction. Patient denies any chest pain currently Please note the above document was generated using voice recognition software. It may contain grammatical, syntax or spelling errors. Any formal questions or concerns about the content, text or information contained within the body of this dictation should be directly addressed to the provider for clarification Total Time Total Time Spent Total Time Spent (In Minutes): 45 Total Time Includes: Examination of the Patient, Discharge Planning, Medication Reconciliation, Communication With Other Providers and Other Discharge Plan Discharge Items Patient Disposition: Home - Self-Care Reason For Visit: SOB, HYPOKALEMIA Discharge Diagnosis: Sepsis, POA Pneumonia Activity: Resume your previous activity Non-emergency contact: Primary Care Provider Call non-emergency contact if: you have any medication questions Follow-up/Referrals: Daniela Castillo DO [Primary Care Provider] - Diet: Regular Addtl Attending Provider Instructions: You were admitted to the hospital due to pneumonia. You are treated with antibiotics during the hospitalization. To complete the antibiotic course, you are prescribed following antibiotics: 1) cefdinir 300 mg twice a day for 5-day 2) doxycycline 100 mg twice a day for 5 days Please follow-up with your primary care doctor next week. Pending Studies at Discharge: No Stand-Alone Forms: [employer] Smoking Cessation Medications and DC Order Prescriptions: New doxycycline hyclate 100 mg Capsule 100 mg PO BID 5 Days Qty: 10 0RF cefdinir 300 mg capsule 300 mg PO BID 5 Days Qty: 10 0RF Continued atorvastatin 40 mg tablet 20 mg PO [id number] Rx Instructions: takes 1/2 tablet on mondays and ..per pt to save money...is ordered 40 mg daily aspirin [Aspirin Low-Strength] 81 mg Tablet,Delayed Release (Dr/Ec) 81 mg PO DAILY acetaminophen [Tylenol Arthritis] 650 mg Tablet Extended Release 650 mg PO HS calcium-vitamin D3-vitamin K [Viactiv] 500-200-40 mg-unit-mcg Tablet,Chewable 1 tab PO QAM sennosides-docusate sodium [Senna with Docusate Sodium] 8.6-50 mg Tablet 2 tab-cap PO HS cholecalciferol (vitamin D3) [Vitamin D3] 25 mcg (1,000 unit) Tablet 25 mcg PO QAM Discharge Orders: Discharge Order (Routine); Ordered 07/31/23 Ordered By: Jamie Burnett Admission Data Admit Date/Time: 07/28/23 00:27 Attending Provider: Jamie Burnett Admit Provider: Miguel A Beatty Primary Care Provider: Daniela Castillo Other Providers: Johnson Velez
[2023-07-31 15:27] VITALS: BP 128/80; PULSE 115; O2SAT 95
[2023-07-31] MEDS ORDERED: ALBUT/IPRATROP 3MG/0.5MG NEB 3 ML VIAL NEB SCH (19:00)
== END 2023-07-31 18:04 | disposition home or self-care (01) | DRG 871 ==
LOC: ED 19:53 → EDINP 07-28 00:27 → SUATTDRO 07-28 00:27 → 2N 07-28 18:46 → UNDODISIN 07-31 16:17
DX: E87.6 Hypokalemia; I24.89 Other forms of acute ischemic heart disease; Z88.1 Allergy status to other antibiotic agents; Z79.82 Long term (current) use of aspirin; Z88.2 Allergy status to sulfonamides; A41.9 Sepsis, unspecified organism; J69.0 Pneumonitis due to inhalation of food and vomit; Z86.73 Personal history of transient ischemic attack (TIA), and cerebral infarction without residual deficits